=== PATIENT | female | born 1950 | race Two or more races ===

== ENCOUNTER 2024-11-11 16:50 | Emergency (ER) | payer MEDICARE, MEDICAID, SELFPAY ==
--- NOTE | 2024-11-11 16:56 | EDNOTE_ITS ---
<Statement entered by Yesenia Sommer MD - 11/12/24 01:46> As co-signing physician, I was present and available for consult prn. I concur with the plan and care as documented by the midlevel provider. ED General RME/HPI General Chief complaint: Extremity Injury, Lower Stated complaint: BILATERAL LEG PAIN Time Seen by Provider: 11/11/24 16:54 Arrival date/time: 11/11/24 16:50 CC: Intractable hip and bilateral leg pain HPI patient presents to the ER via EMS from [facility] where the patient was picked up by EMS reports stable vital signs with intractable acute on chronic pain. Patient states that she has a fentanyl patch but it came off last night during her shower. Patient has no other complaints. Patient denies fall. EMS report picking the patient up in a wheelchair outside the front of the facility. Related Data Allergies Allergy/AdvReac Type Severity Reaction Status Date / Time pregabalin (From Lyrica) Allergy Verified 11/11/24 17:41 Review of Systems Review of Systems Narrative Review of Systems: GEN: No fever, no chills, no weight loss EYES: No discharge, no visual changes, no pain HEENT: No ear pain, no congestion, no sore throat PULM: No shortness of breath, no cough, no congestion CV: No chest pain, no dyspnea on exertion, no palpitations GI: No nausea, no vomiting, no diarrhea, no pain, no constipation : No frequency, no urgency, no dysuria MUSC/SKEL: + joint pain, no back pain SKIN: No rash PSYCH: No hallucinations, no depression HEME/LYMPH: No easy bleeding or bruising tendencies NEURO: No weakness, no headache Past Medical History Social History SMOKING STATUS: Never smoker ED Exam Narrative Physical exam: [General: In moderate discomfort but not in any acute distress Head normocephalic HEENT: Within acceptable limits Neck is supple nontender Chest equal chest rise nontender to palpation Respiratory: Clear to auscultation no wheezes crackles or rubs CV: Rate rhythm is regular no murmurs rubs or clicks Abdomen is soft nontender no masses positive bowel sounds all 4 quadrants Back: No CVA tenderness no spinous process tenderness from cervical spine thoracic and lumbar spine Skin: Just site on the center back where fentanyl patches have been placed in the past secondary to the adhesive ring around the patch. But the patch is absent. Skin is intact no petechiae rash induration ulceration or crepitus Extremities: Weakly moving all extremities against resistance cap refill less than 2 seconds neurosensory intact Neuro: Awake alert oriented x2, person and place, Glascow coma 15 no focal deficits] Course Course Course Narrative: Pharmacy refused to dispense fentanyl patch secondary to in-house protocol Quality Measures none Orders Category Date Time Status Insert IV NOW Care 11/11/24 17:25 Active CBC Stat Lab 11/11/24 17:10 Completed CMP [Comprehensive Metabolic Panel] Stat Lab 11/11/24 17:10 Completed Urinalysis, C/S if Indicated Stat Lab 11/11/24 17:20 Completed Morphine Inj Med 11/11/24 17:18 Discontinued 4 mg IVP X1 ONE Ondansetron Inj [Zofran Inj] Med 11/11/24 17:18 Discontinued 4 mg IV X1 ONE fentaNYL (Patch) [Duragesic] Med 11/11/24 16:56 Discontinued 50 mcg TOP X1 ONE oxyCODONE/APAP 5/325 [Percocet 5/325] Med 11/11/24 17:13 Discontinued 1 tab PO X1 ONE Vital Signs Vital signs: Vital Signs Temperature 99.7 F 11/11/24 17:17 Pulse Rate 94 11/11/24 17:17 Respiratory Rate 22 H 11/11/24 17:17 Blood Pressure 128/83 11/11/24 17:17 Pulse Oximetry (%) 99 11/11/24 17:17 Oxygen Delivery Method Room Air 11/11/24 17:17 [facility] Patient data External records reviewed:: [facility] previous records and EMS form Clinical information provided by:: patient and EMS Social determinants that could affect healthcare access:: none Patient has the following chronic illnesses:: Chronic leg pain How is presenting disease/condition affected by chronic disease/condition?: e xacerbated by Evaluation data The following diagnostics were reviewed and interpreted by me:: lab results Lab and/or radiology exams considered but not ordered:: CBC shows no acute leukocytosis anemia thrombocytopenia CMP shows elevated BUN and no significant electrolyte imbalances no transaminitis or T. bili elevation. Urine is negative for UTI. Interpretation Summary: Patient has no acute finding requires emergent or immediate intervention as soon as the patient's ambulance staff were gone the patient resided to normal after being undressed and put in a gown the gait patient was observed sitting up and getting her self back dressed again at this point in time I find no acute finding the patient is now conversant and not agitated. The fentanyl patch on her left shoulder is in place. Patient will be discharged home. I suspect patient has had a continuous argument with staff at the assisted care facility and this was a means of getting away from them for short time. Medications Medications considered but not ordered:: None Medication administrations:: Medication Administration History Discontinued Medications Fentanyl (Fentanyl 50 Mcg Transdermal Patch) 50 mcg TOP X1 ONE; Protocol Stop: 11/11/24 16:57 Last Admin: 11/11/24 17:42 Dose: Not Given Documented By: DB Non-Admin Reason: Cancelled by Provider Morphine Sulfate (Morphine Sulf Inj 10 Mg/Ml Vial) 4 mg IVP X1 ONE Stop: 11/11/24 17:19 Last Admin: 11/11/24 17:40 Dose: 4 mg Documented By: BROCK Comments: unable to scan medication Ondansetron HCl (Ondansetron Inj 2 Mg/Ml Inj 2 Ml) 4 mg IV X1 ONE; Protocol Stop: 11/11/24 17:19 Last Admin: 11/11/24 17:34 Dose: 4 mg Documented By: BROCK Oxycodone/Acetaminophen (Oxycodone/Apap 5/325 Tablet) 1 tab PO X1 ONE Stop: 11/11/24 17:14 Last Admin: 11/11/24 17:42 Dose: Not Given Documented By: BROCK Non-Admin Reason: Cancelled by Provider None Consultations Consultation(s) initiated? (list below): No Diagnosis Differential Diagnosis ED Complaint MDM: UTI electrolyte imbalances renal impairment Most likely diagnosis given after review of the tests above:: Chronic hip and knee pain Admission Indicated Admission indicated?: not indicated Explain why admission is indicated or not indicated:: Stable for discharge Admission Request Was there a request for admission?: No Disposition Plan Disposition Plan: Discharge Discharge Attestation Discharge Attestation: The patient and all family members were given an opportunity to ask questions and understood the discharge instructions. Discharge instructions specifically effects, indications for sooner follow up or return to the emergency department, and the expected course of current diagnosis. Patient condition: Stable Medical Decision Making Differential Diagnosis Differential Diagnosis: UTI electrolyte imbalances renal impairment Lab Data 11/11/24 17:10 11/11/24 17:10 Labs: Lab Results 11/11/24 11/11/24 Range/Units 17:10 17:20 WBC 7.2 (3.6-11.0) Thou/mm3 RBC 3.65 L (4.00-5.20) Miln/mm3 Hgb 11.6 L (12.0-16.0) g/dL Hct 34.3 L (36.0-46.0) % MCV 94 (80-100) fL MCH 31.8 (25.0-35.0) pg MCHC 33.8 (31.0-37.0) g/dl RDW Std Deviation 44.9 (36.4-46.3) fL Plt Count 281 (140-440) Thou/mm3 Neut % (Auto) 61 (37-80) % Lymph % (Auto) 23 (10-50) % Marion % (Auto) 12 (0-12) % Eos % (Auto) 3 (0-10) % Baso % (Auto) 1 (0-2.5) % Neut # (Auto) 4.4 (1.8-7.7) Thou/mm3 Lymph # (Auto) 1.6 (1.0-4.8) Thou/mm3 Marion # (Auto) 0.8 (0.0-0.8) Thou/mm3 Eos # (Auto) 0.2 (0.0-0.5) Thou/mm3 Baso # (Auto) 0.0 (0.0-0.2) Thou/mm3 Immature Gran # (Auto) 0.04 H (0.00-0.00) Thou/mm3 Absolute Nucleated RBC 0.00 (0.00-0.00) Thou/mm3 Immature Gran % 1 H (0-0) % Nucleated RBC % 0 (0) /100 WBC Sodium 135 L (136-145) mMol/L Potassium 4.0 (3.4-5.1) mMol/L Chloride 99 (98-107) mMol/L Carbon Dioxide 29.4 (20.0-31.0) mMol/L Anion Gap 7 (7-16) BUN 26 H (9-23) mg/dL Creatinine 0.9 (0.6-1.3) mg/dL Estim Creat Clear Calc 53.8 L (>60) mL/min eGFR > 60 (60 - ) See Note BUN/Creatinine Ratio 29 H (12-20) Ratio Glucose 130 H (74-106) mg/dL Calculated Osmolality 276 (275-295) Calcium 9.2 (8.3-10.6) mg/dL Corrected Calcium 9.3 (8.5-10.1) mg/dL Total Bilirubin 0.6 (0.3-1.2) mg/dL AST 26 (0-34) U/L ALT 16 (10-49) U/L Alkaline Phosphatase 82 (46-116) U/L Total Protein 7.6 (5.7-8.2) gm/dL Albumin 3.9 (3.4-4.8) gm/dL Globulin 3.7 H (2.3-3.5) gm/dL Albumin/Globulin Ratio 1.1 L (1.2-2.2) Ur Collection Type Clean Catch Urine Color Yellow (Lt Yel-Yel) Urine Clarity Clear (Clear/Hazy) Urine pH 6.5 (5.0-7.0) Ur Specific Temple 1.017 (1.001-1.035) Urine Protein Negative (Neg - Trace) Urine Glucose (UA) Negative (Negative) Urine Ketones Negative (Negative) Urine Blood Negative (Negative) Urine Nitrite Negative (Negative) Urine Bilirubin Negative (Negative) Urine Urobilinogen (Auto) 2.0 (0.0-1.0) mg/dL Ur Leukocyte Esterase Negative (Negative) Urine RBC < 1 (0-3) /hpf Urine WBC 1 (0-5) /hpf Ur Squamous Epith Cells < 1 (0-5) /hpf Urine Bacteria None (None) Hyaline Casts < 1 (0-1) /hpf Ur Culture Indicated? Not Indicated Discharge Plan Plan Patient Disposition: HOME (Self Care) Patient condition on transfer: Stable Problem List Clinical Impression: Chronic pain Patient/Caregiver Discharge Instructions Education Materials: ED Chronic Pain Additional Instructions: Take your medication as prescribed Print Language: Greenlandic Stand Alone Forms: Laura Award Info., Patient Portal Info Letter PA/WOO Supervising Physician PA/TECHNICAL SUPPORT ANALYST Supervising Physician: Unruly Brown ENP
[2024-11-11 16:58] VITALS: PULSE 86; RESP 20; O2SAT 97; BMI 31.8
[2024-11-11 17:17] VITALS: BP 128/83; PULSE 94; RESP 22; TEMP 37.6; O2SAT 99
[2024-11-11 17:24] LABS: Collection Type, Urine Clean Catch
[2024-11-11 17:27] LABS: Basophils % (Auto) 1 % (0-2.5); Eosinophils # (Auto) 0.2 Thou/mm3 (0.0-0.5); Eosinophils % (Auto) 3 % (0-10); Hematocrit 34.3 % (36.0-46.0); Hemoglobin 11.6 g/dL (12.0-16.0); Immature Granulocytes % (Auto) 1 % (0-0); Immature Granulocytes Auto 0.04 Thou/mm3 (0.00-0.00); Lymphocytes # (Auto) 1.6 Thou/mm3 (1.0-4.8); Lymphocytes % (Auto) 23 % (10-50); Mean Corpuscular HGB Conc 33.8 g/dl (31.0-37.0); Mean Corpuscular Hemoglobin 31.8 pg (25.0-35.0); Mean Corpuscular Volume 94 fL (80-100); Monocytes # (Auto) 0.8 Thou/mm3 (0.0-0.8); Monocytes % (Auto) 12 % (0-12); Neutrophils # (Auto) 4.4 Thou/mm3 (1.8-7.7); Neutrophils % (Auto) 61 % (37-80); Nucleated Red Blood Cell % 0 /100 WBC (0); Platelet Count 281 Thou/mm3 (140-440); RDW Standard Deviation 44.9 fL (36.4-46.3); Red Blood Count 3.65 Miln/mm3 (4.00-5.20); White Blood Count 7.2 Thou/mm3 (3.6-11.0)
[2024-11-11 17:32] LABS: Bilirubin,Urine Negative (Negative); Blood,Urine Negative (Negative); Clarity,Urine Clear (Clear/Hazy); Color,Urine Yellow (Lt Yel-Yel); Culture Indicated,Urine Not Indicated; Glucose, Urine Negative (Negative); Hyaline Casts,Urine < 1 /hpf (0-1); Ketones,Urine Negative (Negative); Leukocyte Esterase,Urine Negative (Negative); Nitrite,Urine Negative (Negative); PH,Urine 6.5 (5.0-7.0); Protein,Urine Negative (Neg - Trace); RBC,Urine < 1 /hpf (0-3); Specific Gravity,Urine 1.017 (1.001-1.035); Squamous Epithelial Cell,Urine < 1 /hpf (0-5); WBC,Urine 1 /hpf (0-5)
[2024-11-11] MEDS: ONDANSETRON INJ 2 MG/ML INJ 2 ML 4 MG IV (17:34)
[2024-11-11] MEDS: MORPHINE SULF INJ 10 MG/ML VIAL 4 MG IVP (17:40)
[2024-11-11 17:50] LABS: Alanine Aminotransferase 16 U/L (10-49); Albumin, Serum 3.9 gm/dL (3.4-4.8); Albumin/Globulin Ratio 1.1 (1.2-2.2); Alkaline Phosphatase 82 U/L (46-116); Anion Gap 7 (7-16); Aspartate Amino Transferase 26 U/L (0-34); BUN/Creatinine Ratio 29 Ratio (12-20); Bilirubin,Total 0.6 mg/dL (0.3-1.2); Blood Urea Nitrogen 26 mg/dL (9-23); Calcium 9.2 mg/dL (8.3-10.6); Calcium (Corrected) 9.3 mg/dL (8.5-10.1); Carbon Dioxide 29.4 mMol/L (20.0-31.0); Chloride 99 mMol/L (98-107); Creatinine (Component) 0.9 mg/dL (0.6-1.3); Estimated Creatinine Clearance 53.8 mL/min (>60); Globulin 3.7 gm/dL (2.3-3.5); Glucose 130 mg/dL (74-106); Osmolality,Calculated 276 (275-295); Sodium 135 mMol/L (136-145); Total Protein 7.6 gm/dL (5.7-8.2); eGFR > 60 See Note
[2024-11-11 19:33] VITALS: BP 133/96; PULSE 84; RESP 18; TEMP 36.9; O2SAT 96
[2024-11-11 19:39] VITALS: RESP 18
== END 2024-11-11 19:41 | disposition home or self-care (01) ==
PROVIDERS: Registered Nurse General Practice; Emergency Provider Emergency Medicine
DX: G89.29 Other chronic pain (principal)
CPT/HCPCS: 36415; 80053; 81001; 85025; 99284; J2270; J2405

== ENCOUNTER 2025-03-08 08:21 | Emergency (ER) | payer MEDICARE, MEDICAID, SELFPAY ==
[2025-03-08 08:23] VITALS: BP 187/91; PULSE 88; RESP 16; TEMP 36.8; O2SAT 90
[2025-03-08 08:38] VITALS: BMI 26.5
--- NOTE | 2025-03-08 08:58 | EDNOTE_ITS ---
ED General RME/HPI General Chief complaint: Fall Stated complaint: FALL Time Seen by Provider: 03/08/25 09:13 Arrival date/time: 03/08/25 08:21 RME / HPI RME / HPI narrative: DR. HODGES MAIN ED EVALUATION: 75 year old female with past medical history significant for dementia, hypertension, and schizophrenia presents to the Emergency Department [facility] from residential with complaints of left arm pain and left knee pain secondary to fall. Patient has bilateral leg swelling. No other symptoms reported at this time. Per EMS report, patient complained of right shoulder pain but here is FROM of bilateral upper extremities. Related Data Allergies Allergy/AdvReac Type Severity Reaction Status Date / Time pregabalin (From Lyrica) Allergy Verified 11/11/24 17:41 Review of Systems Review of Systems Systems Reviewed: All systems reviewed, normal except as documented Past Medical History Past Medical History NEUROLOGIC: Positive Dementia CARDIAC: Positive Cardiac Disorders (atherosclerosis) and Hypertension MUSCULOSKELETAL: Positive Musculoskeletal Disorders PSYCHO/SOCIAL: Positive Schizophrenia Social History SMOKING STATUS: Never smoker SUBSTANCE USE: does not use ALCOHOL: Never ED Exam Narrative Physical exam: Physical Exam: General: The vital signs were reviewed. Patiently is very demented unable to provide any history and is moving her arms bilaterally without any hesitation including the shoulder. She lifts her legs and seems to move her bilateral hips without any difficulty but points to her left knee is hurting. Her bilateral legs are edematous and and appear chronically edematous. the patient is non-toxic, in no apparent distress and appears healthy with a patent airway, no respiratory distress and has no apparent circulatory problems. Head & Scalp: Normocephalic, atraumatic. Face: Appears normal and is without lesions, deformity. Ears: Left external pinna appears normal. Right external pinna appears normal. Eyes: The sclera is anicteric. No obvious photophobia. The Left and Right Orbit/Lid/Conjunctiva appears normal without swelling, discoloration or injection. Nose: The nose is without deformity, discharge or tenderness; Throat: Appears normal. The mucous membranes are pink and moist without exudates, redness or mass seen. The tongue appears normal. Neck: The neck is supple and no apparent mass or adenopathy. Chest: The chest wall is normal in size and symmetry and has no chest wall tenderness or crepitus. The patient displays normal ventilator effort without retractions, accessory muscle use and has adequate air movement bilaterally with no wheezes and no rales. Cardiovascular: Regular rate and rhythm; No murmurs, rubs, or gallops; Gastrointestinal: The abdomen appears normal. No obvious hernias or mass. The abdomen is soft and benign, non-distended, with no pain, no guarding and no rebound tenderness. Bowel sounds are present and normal sounding. No CVA tenderness. Genitourinary: Back/Spine: Extremities/Musculoskeletal/lymphatic: The bilateral upper and lower extremities are warm. They are obese with lots of edema and unable to visualize any unilateral swelling but patient seems to have more tenderness over the left knee may be distal femur. Moves that leg spontaneously at other times especially at the hip and has limited range of motion of the left knee. Right knee seems to move better with some minimal discomfort. Right hip has no obvious discomfort and pelvis seems to be stable on palpation. Although there is some hint of discomfort when she points to her leg that she cannot localize or explain due to her dementia. Skin: The skin is warm, dry and intact. No rashes. No petechia. No purpura. No abnormal bruising. The color is appropriate with no cyanosis. Mental status/Psychiatric: Mental status is very demented unable to provide any history or reliable information Neurological: The patient is awake, alert, has rambling speech and nonsensical things. Seems to move all her extremities and no obvious focal deficit. See extremities above for details. She is nonambulatory in a wheelchair. Course Quality Measures none Orders Category Date Time Status XR knee BI 3V Stat Exams 03/08/25 09:13 Completed XR pelvis 1-2V Stat Exams 03/08/25 09:13 Completed Vital Signs Vital signs: Vital Signs Temperature 98.3 F 03/08/25 08:23 Pulse Rate 88 03/08/25 08:23 Respiratory Rate 16 03/08/25 08:23 Blood Pressure 187/91 H 03/08/25 08:23 Pulse Oximetry (%) 90 L 03/08/25 08:23 Oxygen Delivery Method Room Air 03/08/25 08:23 Discharge Plan Plan Patient Disposition: HOME (Self Care) Prescriptions/Referrals Referrals: No Primary/Family,Physician [Referring Provider] - In 1 week Problem List Clinical Impression: Fall from wheelchair, Dementia, Acute pain of right knee Patient/Caregiver Discharge Instructions Additional Instructions: Today we found no x-ray evidence of anything fractured. She seems to have some tenderness of her left knee. If the knee keeps bothering her put her in a knee immobilizer and have her follow-up with her doctor for reevaluation in 2 to 3 days. Use your usual pain medicines as prescribed. Contact the doctor for any further evaluation or return if getting worse. Print Language: Uzbek [facility] Narrative [facility] hospital course: Patient is brought here as they were concerned about right shoulder pain after a fall from a wheelchair where she was found on the ground and not witnessed. Here she is moving her arms without any hesitancy she is got no tenderness on palpation of the clavicles humerus and in bilateral upper extremities. Bilateral hips seem to move well. There is no obvious pelvic pain but she points to her left leg and pelvic area but mostly her left knee with pain. Right knee has some minimal pain. There is decreased range of motion of the left knee but she also has bilateral chronic edema of the lower extremities. At this time organ to get x-rays of her knees with the left knee being the one most concerning allergies get a plain pelvic go just to rule out a rami fracture. Patient is already on chronic pain medicines and got morphine prior to coming here. No family is present. X-rays of bilateral knees and the pelvis revealed no fracture. Patient does not seem to be bothered by any of this and is very demented unable to give any reliable history. There is no reason to keep the patient here and no reason to do any further workup or laboratory studies. --- Geovanna Duenas, am scribing for and in the presence of Dr. Hodges. Clinical Information Provided by patient and EMS other: Patient demented totally unreliable. Medical Records Reviewed [facility] and EMS Meds/Rx Considered, not Ordered None Labs/Rad/Tests considered, not Ordered None Chronic Illness/Social Conditions which may negatively complicate care or outcome(s)-explain: retirement/debilitated Add or document further as needed: Dementia, hypertension, and schizophrenia EKG EKG not done Lab Interpretation Labs: none Imaging Imaging interpretation: see narrative above Radiology reports / interpretation(s): Procedure(s): XR knee BI 3V Accession Number(s): [id number] cc: Samia Carroll MD; Hardik Hodges MD; Donovan Polanco MD~ Examination: Knee bilateral, 6 views Technique: Knee AP, lateral, oblique each knee total 6 views Date and time of exam: March 08, 2025 0924 hrs. Indications: Patient fell today with injury to both knees, bilateral knee pain. Findings: Prominent osteopenia No fracture or dislocation involving either knee Impression: No fracture or dislocation involving either knee Dictated By: Donovan Polanco MD Procedure(s): XR pelvis 1-2V Accession Number(s): [id number] cc: Samia Carroll MD; Hardik Hodges MD; Donovan Polanco MD~ Examination: AP pelvis single view Technique: AP portable supine pelvis single view Date and time: March 08, 2025 0919 hrs. Indications: Patient fell today with injury to the pelvis, pelvic pain. Findings: Prominent osteopenia. No acute hip or pelvic fracture Impression: No acute hip or pelvic fracture Recommend 1 day follow-up AP pelvis as clinically warranted Dictated By: Donovan Polanco MD Medication Administration(s) none Diagnosis Differential diagnosis: fall, left knee fracture, left arm pain Most likely dx, and/or detailed dx discussion: Fall from wheelchair Dementia Acute pain of right knee Dispositon Disposition: Discharge Home
--- NOTE | 2025-03-08 09:13 | XR_ITS ---
Examination: Knee bilateral, 6 views Technique: Knee AP, lateral, oblique each knee total 6 views Date and time of exam: March 08, 2025 0924 hrs. Indications: Patient fell today with injury to both knees, bilateral knee pain. Findings: Prominent osteopenia No fracture or dislocation involving either knee Impression: No fracture or dislocation involving either knee
--- NOTE | 2025-03-08 09:13 | XR_ITS ---
Examination: AP pelvis single view Technique: AP portable supine pelvis single view Date and time: March 08, 2025 0919 hrs. Indications: Patient fell today with injury to the pelvis, pelvic pain. Findings: Prominent osteopenia. No acute hip or pelvic fracture Impression: No acute hip or pelvic fracture Recommend 1 day follow-up AP pelvis as clinically warranted
[2025-03-08 10:00] VITALS: BP 155/71; PULSE 90; RESP 20; TEMP 37.1; O2SAT 93
--- NOTE | 2025-03-08 10:03 | PC.NURSE ---
PT BIBA FOR FALL AT CUSTODIAL - UNWITNESSED PER STAFF - PT DEMENTED AND A&OX1 BASELINE. PT HAS NO COMPLAINTS AT THIS TIME- NOT COMPLAINING OF PAIN, PT MOVING ALL LIMBS. PT OPN MONITOR. WILL CONT TO MONITOR.
[2025-03-08 11:55] VITALS: BP 145/78; PULSE 87; RESP 14; TEMP 36.9; O2SAT 91
--- NOTE | 2025-03-08 12:35 | PC.NURSE ---
[facility] with no answer
--- NOTE | 2025-03-08 12:44 | PC.CC ---
Cherelle FOSTER was consulted by LANI Dejesus regarding transportation for the patient back to [facility]. ASW made telephone contact with [facility] for transportation reservation number. The customer engagement representative reports the patient's insurance is not active ASW attempted to call again and they report the same. ASW arranged transportation with [facility].
[2025-03-08 13:07] VITALS: BP 172/95; PULSE 92; RESP 18; TEMP 37.1; O2SAT 95
--- NOTE | 2025-03-08 13:08 | PC.CC ---
Riky Ross made contact with [facility]W and reports they cannot accommodate patient as they are short staffed. ASW attempted to contact [facility] again was able to obtain reservation as they had the patient with spelling on name incorrect. Reservation [phone].
[2025-03-08 14:05] VITALS: BP 161/83; PULSE 92; RESP 15; O2SAT 95
--- NOTE | 2025-03-08 14:08 | PC.NURSE ---
REPORT CALLELD VIA TELEPHONE TO JUSTIN GARIBAY FROM [facility] VIA TELEPHONE
== END 2025-03-08 14:50 | disposition home or self-care (01) ==
PROVIDERS: Emergency Provider Emergency Medicine; PCP Hospitalist
DX: S39.93XA Unspecified injury of pelvis, initial encounter (principal); S89.92XA Unspecified injury of left lower leg, initial encounter; S89.91XA Unspecified injury of right lower leg, initial encounter; F03.90 Unspecified dementia, unspecified severity, without behavioral disturbance, psychotic disturbance, mood disturbance, and anxiety; M25.511 Pain in right shoulder; W05.0XXA Fall from non-moving wheelchair, initial encounter
CPT/HCPCS: 72170; 73562; 99283

== ENCOUNTER 2025-05-13 11:22 | Emergency (ER) | payer MEDICARE, MEDICAID, SELFPAY ==
--- NOTE | 2025-05-13 12:33 | PD.EDADULT ---
ED General RME/HPI General Chief complaint: General Adult/Misc Complain Stated complaint: NOT WANTING TO TAKE MEDS, NON COMPLIANT WITH STAFF Time Seen by Provider: 05/13/25 11:36 Arrival date/time: 05/13/25 11:22 Limitations: no limitations RME / HPI RME / HPI narrative: 75 year old female with history of dementia, hepatic encephalopathy, hypertension, hyperlipidemia, schizophrenia, repeat falls presents to the ED [facility] from [facility] for evaluation of aggressive behavior. Per medics, [place] staff reported the patient was aggressive this morning and refusing to take her medications. Otherwise no other complaints or concerns reported. Medics state on scene the patient followed commands and displayed no signs of aggression. In the ED patient has no complaints. Related Data Previous Rx's ?Medication ?Instructions ?Recorded cephalexin 500 mg capsule 500 mg PO QID #20 caps 05/13/25 Allergies Allergy/AdvReac Type Severity Reaction Status Date / Time pregabalin (From Lyrica) Allergy Verified 11/11/24 17:41 Review of Systems Review of Systems Systems Reviewed: All systems reviewed, normal except as documented Past Medical History Past Medical History NEUROLOGIC: Positive Dementia CARDIAC: Positive Cardiac Disorders and Hypertension MUSCULOSKELETAL: Positive Musculoskeletal Disorders PSYCHO/SOCIAL: Positive Schizophrenia Social History SMOKING STATUS: Unknown if ever smoked SUBSTANCE USE: does not use ED Exam General Limitations: Present no limitations General appearance: Present alert and in no apparent distress Head Head exam: Present atraumatic, normocephalic and normal inspection Eye Eye exam: Present normal appearance, PERRL and EOMI ENT ENT exam: Present normal exam, normal oropharynx and mucous membranes moist Neck Neck exam: Present normal inspection, full ROM and trachea midline Chest Chest inspection: Present normal inspection and symmetric chest wall rise Respiratory Respiratory exam: Present normal lung sounds bilaterally Cardiovascular Cardiovascular exam: Present regular rate, normal rhythm and normal heart sounds Abdominal Exam Abdominal exam: Present soft and normal bowel sounds Extremities Exam Extremities exam: Present normal inspection and full ROM Back Exam Back exam: Present normal inspection and full ROM Neurological Exam Neurological exam: Present alert (oriented to self, not to place or situation), CN II-XII intact and other (moves all 4 extremities, no focal deficits, ambulating without difficulty ) Psychiatric Psychiatric exam: Present normal affect and normal mood Skin Skin exam: Present warm, dry, intact and normal color Course Quality Measures none Orders Category Date Time Status CBC Stat Lab 05/13/25 15:39 Completed CMP [Comprehensive Metabolic Panel] Stat Lab 05/13/25 15:39 Completed UA, C/S IF [Urinalysis, C/S if Indicated] Stat Lab 05/13/25 14:38 Completed Urine Culture Stat Lab 05/13/25 14:[address] [Arnoldo Rosario] Med 05/13/25 14:14 Discontinued 500 mg PO X1 ONE Haloperidol Lactate [Haldol Inj] Med 05/13/25 16:54 Discontinued 5 mg IM X1 ONE Midazolam Inj [Versed Inj] Med 05/13/25 18:43 Discontinued 1 mg IM X1 ONE OLANZapine INJ [Zyprexa Inj] 5 mg Med 05/13/25 23:42 Discontinued Sterile Water 2.1 ml IM QDAY QUEtiapine FUMARATE [SEROquel] Med 05/13/25 19:50 Discontinued 100 mg PO X1 ONE cefTRIAXone [Rocephin] 1,000 mg Med 05/13/25 17:00 Discontinued Lidocaine 1% 20 ml [Xylocaine 1% 20 ML] 2.1 ml IM X1 Vital Signs Vital signs: Vital Signs Temperature 98.9 F 05/13/25 12:45 Pulse Rate 88 05/13/25 12:45 Respiratory Rate 20 05/13/25 12:45 Blood Pressure 133/74 H 05/13/25 12:45 Pulse Oximetry (%) 93 L 05/13/25 12:45 Oxygen Delivery Method Room Air 05/13/25 12:45 Pulse ox is 93% on room air which is borderline low. Critical Care Time Critical Care Time Critical Care Time: No Discharge Plan Plan Patient Disposition: HOME (Self Care) Prescriptions/Referrals Prescriptions/Med Rec: New cephalexin 500 mg capsule 500 mg PO QID Qty: 20 0RF Referrals: No Primary/Family,Physician [Primary Care Provider] - In 1 week Problem List Clinical Impression: Agitation, Urinary tract infection Patient/Caregiver Discharge Instructions Additional Instructions: Please follow-up with your primary care doctor within 1 to 2 days. Print Language: Estonian Stand Alone Forms: Laura Award Info., Patient Portal Info Letter MDM Narrative [facility] hospital course: Jeanette Duenas am scribing for and in the presence of Dr. Reyes. 75 year old female with history of dementia, hepatic encephalopathy, hypertension, hyperlipidemia, schizophrenia, repeat falls presents to the ED [facility] from [facility] for evaluation of aggressive behavior. Patient is calm, at times wanting to get out of bed intermittently agitated, but redirectable. Concern for metabolic derrangement, UTI, among others. Patient not septic, no FBD, less likely acute CVA. Ordered labs, offered meds for sx relief. Workup notable for UTI. Abx provided. Patient not septic. Will dc back to patient's SNF Clinical Information Provided by patient and EMS Medical Records [facility] EMS and [facility] Meds/Rx Considered, not Ordered None Labs/Rad/Tests considered, not Ordered None Chronic Illness/Social Conditions which may negatively complicate care or outcome(s)-explain: penitentiary/debilitated EKG EKG not done Lab Interpretation Labs: see narrative above Imaging Imaging interpretation: none Medication Administration(s) Medication Administration History Discontinued Medications Ceftriaxone Sodium 1,000 mg/ (Lidocaine HCl 2.1 ml) 0 mg IM X1 ONE Stop: 05/13/25 17:01 Last Admin: 05/13/25 17:37 Dose: 1,000 mg Documented By: ALEXIS Comments: MIXED WITH 2.1 ML LIDO Olanzapine 5 mg/ Sterile Water (2.1 ml) 0 mg IM QDAY RAMIN Stop: 06/12/25 23:41 Last Admin: 05/14/25 01:24 Dose: 1.05 dose Documented By: JAYJAY Divalproex Sodium (Divalproex Sod Dr 500 Mg Tablet.Dr) 500 mg PO X1 ONE Stop: 05/13/25 14:15 Last Admin: 05/13/25 15:01 Dose: Not Given Documented By: TEDDY Non-Admin Reason: Patient Refused Haloperidol Lactate (Haloperidol Lact Inj 5 Mg/Ml Vial) 5 mg IM X1 ONE Stop: 05/13/25 16:55 Last Admin: 05/13/25 17:42 Dose: 5 mg Documented By: ALEXIS Midazolam HCl (Midazolam Inj 1 Mg/Ml Vial 2 Ml) 1 mg IM X1 ONE Stop: 05/13/25 18:44 Last Admin: 05/13/25 20:06 Dose: Not Given Documented By: SF Non-Admin Reason: Change of Condition Quetiapine Fumarate (Quetiapine Fumarate 100 Mg Tablet) 100 mg PO X1 ONE Stop: 05/13/25 19:51 Last Admin: 05/13/25 20:00 Dose: 100 mg Documented By: BETTY See above Diagnosis Most likely dx, and/or detailed dx discussion: Agitation UTI Dispositon Disposition: Nursing/Care
[2025-05-13 12:45] VITALS: BP 133/74; PULSE 88; RESP 20; TEMP 37.2; O2SAT 93
[2025-05-13 15:03] LABS: Collection Type, Urine Clean Catch
--- NOTE | 2025-05-13 15:06 | PC.NURSE ---
PATIENT ATTEMPTED TO GET OUT OF BED, SITTER WITH PT. PT BEGAN GRABBING SITTERS ARMS, STILL ATTEMPTED TO GET OUT OF BED. MD AWARE, NEW ORDERS RECIEVED. PT TEMPORARILY PLACED ON RESTRAINTS FOR SAFTEY
[2025-05-13 15:24] LABS: Amorphous Crystals,Urine Present (Absent); Bacteria,Urine Rare; Bilirubin,Urine Negative (Negative); Blood,Urine Negative (Negative); Clarity,Urine Clear (Clear/Hazy); Color,Urine Lt-Yellow (Lt Yel-Yel); Glucose, Urine Negative (Negative); Ketones,Urine Negative (Negative); Leukocyte Esterase,Urine Positive (Negative); Nitrite,Urine Negative (Negative); PH,Urine 6.5 (5.0-7.0); Protein,Urine Negative (Neg - Trace); RBC,Urine 4 /hpf (0-3); Specific Gravity,Urine 1.013 (1.001-1.035); Squamous Epithelial Cell,Urine 1 /hpf (0-5); Urobilinogen,Urine 4.0 mg/dL (0.0-1.0); WBC,Urine 34 /hpf (0-5)
[2025-05-13 15:25] LABS: Culture Indicated,Urine Yes
[2025-05-13 16:01] LABS: Basophils # (Auto) 0.0 Thou/mm3 (0.0-0.2); Basophils % (Auto) 0 % (0-2.5); Eosinophils # (Auto) 0.3 Thou/mm3 (0.0-0.5); Eosinophils % (Auto) 4 % (0-10); Hematocrit 38.2 % (36.0-46.0); Hemoglobin 12.5 g/dL (12.0-16.0); Immature Granulocytes Auto 0.03 Thou/mm3 (0.00-0.00); Lymphocytes # (Auto) 2.7 Thou/mm3 (1.0-4.8); Lymphocytes % (Auto) 41 % (10-50); Mean Corpuscular HGB Conc 32.7 g/dl (31.0-37.0); Mean Corpuscular Hemoglobin 31.6 pg (25.0-35.0); Mean Corpuscular Volume 97 fL (80-100); Monocytes # (Auto) 0.9 Thou/mm3 (0.0-0.8); Monocytes % (Auto) 13 % (0-12); Neutrophils # (Auto) 2.8 Thou/mm3 (1.8-7.7); Neutrophils % (Auto) 42 % (37-80); Nucleated Red Blood Cell # 0.00 Thou/mm3 (0.00-0.00); Nucleated Red Blood Cell % 0 /100 WBC (0); Platelet Count 215 Thou/mm3 (140-440); RDW Standard Deviation 46.3 fL (36.4-46.3); Red Blood Count 3.95 Miln/mm3 (4.00-5.20); White Blood Count 6.8 Thou/mm3 (3.6-11.0)
[2025-05-13 16:19] LABS: Alanine Aminotransferase 31 U/L (10-49); Albumin, Serum 3.5 gm/dL (3.4-4.8); Albumin/Globulin Ratio 1.0 (1.2-2.2); Alkaline Phosphatase 102 U/L (46-116); Anion Gap 12 (7-16); Aspartate Amino Transferase 48 U/L (0-34); BUN/Creatinine Ratio 28 Ratio (12-20); Bilirubin,Total 0.7 mg/dL (0.3-1.2); Blood Urea Nitrogen 28 mg/dL (9-23); Calcium 9.6 mg/dL (8.3-10.6); Calcium (Corrected) 10.0 mg/dL (8.5-10.1); Carbon Dioxide 29.4 mMol/L (20.0-31.0); Chloride 101 mMol/L (98-107); Creatinine (Component) 1.0 mg/dL (0.6-1.3); Globulin 3.5 gm/dL (2.3-3.5); Glucose 105 mg/dL (74-106); Osmolality,Calculated 288 (275-295); Potassium 3.4 mMol/L (3.4-5.1); Sodium 142 mMol/L (136-145); Total Protein 7.0 gm/dL (5.7-8.2); eGFR 58 See Note
[2025-05-13] MEDS: cefTRIAXone 1,000 MG, LIDOCAINE 1% 20 ML 2.1 ML IM (17:37)
[2025-05-13] MEDS: HALOPERIDOL LACT INJ 5 MG/ML VIAL IM (17:42)
--- NOTE | 2025-05-13 18:53 | PC.CC ---
It should be noted that ASW staffed this case with ER provider Eric and ER provider Mariaa and both agreed that no MH eval needs to occur and this is a SNF placement issue with the current SNF [facility]. Therefore, a MH eval is not required or needed for this pt. Pt is medically cleared [facility].
[2025-05-14 00:52] VITALS: BP 120/78; PULSE 83; RESP 14; TEMP 36.8; O2SAT 97
[2025-05-14] MEDS: OLANZapine INJ 5 MG, Sterile Water 2.1 ML IM (01:24)
== END 2025-05-14 01:29 | disposition home or self-care (01) ==
PROVIDERS: Emergency Provider Emergency Medicine
DX: F20.9 Schizophrenia, unspecified (principal); F03.911 Unspecified dementia, unspecified severity, with agitation; N39.0 Urinary tract infection, site not specified
CPT/HCPCS: 36415; 80053; 81001; 85025; 87077; 87086; 87186; 96372; 99283; A4216; J0696; J1630; J2358; J3490; A9270; J2359